=== PATIENT | female | born 1940 | race Caucasian/White ===

== ENCOUNTER → 2019-08-31 05:00 | Outpatient (REF) | payer MEDICARE, SELFPAY ==
[2019-08-31 09:15] LABS: Absolute Lymphocyte Count 1.59 X10^3/uL (0.83-4.51); Absolute Neutrophil Count 4.1 X10^3/uL (2.0-7.7); Basophil# 0.05 X10^3/uL; Basophil% 0.7 % (0-1); Eosinophil# 0.27 X10^3/uL; Hematocrit 34.9 % (37-47); Hemoglobin 11.2 g/dL (12.0-15.0); Lymphocyte # 1.59 X10^3/ul (4.0); Lymphocyte % 23.3 % (19-41); Mean Corp Hgb Conc 32.1 g/dL (32-36); Mean Corpuscular Hgb 30.1 pg (27.0-32.0); Mean Corpuscular Volume 93.8 fL (81-99); Mean Platelet Vol. 10.9 fl (6.2-12.0); Monocyte# 0.74 X10^3/uL; Monocyte% 10.9 % (0-10); NRBC Flagged by Analyzer 0 % (0-5); Neutrophil # 4.14 X10^3/uL (2.7-7.7); Neutrophil % 60.8 % (47-70); Platelet Count 235 K/mm3 (150-450); RBC Distribution Width CV 13.2 % (11.6-14.6); RBC Distribution Width SD 45.1 fl (35.1-43.9); Red Blood Count 3.72 M/mm3 (4.2-5.4); White Blood Count 6.8 K/mm3 (4.4-11.0)
[2019-08-31 09:39] LABS: T4 Free Direct 1.08 ng/dL (0.76-1.46); Thyroid Stim Hormone (TSH) 0.44 uIU/mL (0.358-3.74)
== END ==
LOC: OLS.ACH 05:00
DX: F20.9 Schizophrenia, unspecified (principal); E03.9 Hypothyroidism, unspecified
CPT/HCPCS: 36415; 84439; 84443; 85025

== ENCOUNTER → 2019-10-05 05:30 | Outpatient (REF) | payer MEDICARE, SELFPAY ==
[2019-10-05 08:02] LABS: Absolute Neutrophil Count 4.2 X10^3/uL (2.0-7.7); Basophil# 0.05 X10^3/uL; Basophil% 0.7 % (0-1); Eosinophil# 0.25 X10^3/uL; Eosinophils% 3.7 % (0-5); Hematocrit 34.1 % (37-47); Lymphocyte % 23.5 % (19-41); Mean Corp Hgb Conc 32.3 g/dL (32-36); Mean Corpuscular Hgb 31.1 pg (27.0-32.0); Mean Corpuscular Volume 96.3 fL (81-99); Mean Platelet Vol. 10.2 fl (6.2-12.0); Monocyte# 0.71 X10^3/uL; Monocyte% 10.4 % (0-10); NRBC Flagged by Analyzer 0 % (0-5); Neutrophil # 4.17 X10^3/uL (2.7-7.7); Neutrophil % 61.4 % (47-70); Platelet Count 238 K/mm3 (150-450); RBC Distribution Width CV 13.2 % (11.6-14.6); RBC Distribution Width SD 47.2 fl (35.1-43.9); Red Blood Count 3.54 M/mm3 (4.2-5.4); White Blood Count 6.8 K/mm3 (4.4-11.0)
== END ==
LOC: OLS.ACH 05:30
DX: F20.9 Schizophrenia, unspecified (principal)
CPT/HCPCS: 36415; 85025

== ENCOUNTER → 2019-11-02 05:00 | Outpatient (REF) | payer MEDICARE, SELFPAY ==
[2019-11-02 07:06] LABS: Absolute Lymphocyte Count 1.64 X10^3/uL (0.83-4.51); Absolute Neutrophil Count 3.8 X10^3/uL (2.0-7.7); Basophil# 0.04 X10^3/uL; Basophil% 0.6 % (0-1); Eosinophil# 0.25 X10^3/uL; Eosinophils% 3.9 % (0-5); Hematocrit 32.4 % (37-47); Hemoglobin 10.4 g/dL (12.0-15.0); Lymphocyte # 1.64 X10^3/ul (4.0); Lymphocyte % 25.9 % (19-41); Mean Corp Hgb Conc 32.1 g/dL (32-36); Mean Corpuscular Hgb 31.1 pg (27.0-32.0); Mean Platelet Vol. 10.4 fl (6.2-12.0); Monocyte# 0.64 X10^3/uL; Monocyte% 10.1 % (0-10); NRBC Flagged by Analyzer 0 % (0-5); Neutrophil # 3.75 X10^3/uL (2.7-7.7); Neutrophil % 59.2 % (47-70); Platelet Count 239 K/mm3 (150-450); RBC Distribution Width CV 13.3 % (11.6-14.6); RBC Distribution Width SD 46.9 fl (35.1-43.9); Red Blood Count 3.34 M/mm3 (4.2-5.4); White Blood Count 6.3 K/mm3 (4.4-11.0)
[2019-11-02 07:37] LABS: ALB/GLOB Ratio 1.1 RATIO (0.9-2.4); AST(SGOT) 20 U/L (15-37); Alanine Aminotransfer ALT/SGPT 24 U/L (13-56); Albumin, Serum 2.9 g/dL (3.2-5.0); Alkaline Phosphatase 74 U/L (45-117); Anion Gap 6 (5-15); BUN 29 mg/dL (7-18); BUN/Creat Ratio 28.2 RATIO (10-20); Calcium,Total 9.3 mg/dL (8.5-10.1); Chloride 107 mmol/L (98-107); Cholesterol 163 mg/dL (200); Creatinine, Serum 1.03 mg/dL (0.55-1.02); EST Glomerular Filtration Rate 55 mL/min (>60); Est Glom Filt Rate - Afr Amer 66 mL/min (>60); Globulin 2.7 g/dL (2.2-4.2); Glucose 83 mg/dL (74-106); High Density Lipoprotein 58 mg/dL; Potassium 3.6 mmol/L (3.5-5.1); Protein, Total 5.6 g/dL (6.4-8.2); Sodium Level 145 mmol/L (136-145); T4 Free Direct 1.08 ng/dL (0.76-1.46); Thyroid Stim Hormone (TSH) 0.39 uIU/mL (0.358-3.74); Triglycerides 70 mg/dL; Very Low Density Lipoprotein 14 mg/dL (5-40)
[2019-11-02 08:21] LABS: Hemoglobin A1c 5.8 % (3.8-5.6)
[2019-11-02 10:36] LABS: Vitamin D,25 Hydroxy 57.2 ng/mL
== END ==
LOC: OLS.ACH 05:00
DX: E11.40 Type 2 diabetes mellitus with diabetic neuropathy, unspecified (principal); F20.9 Schizophrenia, unspecified
CPT/HCPCS: 36415; 80053; 80061; 82306; 83036; 84439; 84443; 85025

== ENCOUNTER → 2019-11-30 05:00 | Outpatient (REF) | payer MEDICARE, SELFPAY ==
[2019-11-30 08:00] LABS: Absolute Lymphocyte Count 1.64 X10^3/uL (0.83-4.51); Basophil# 0.04 X10^3/uL; Basophil% 0.6 % (0-1); Eosinophil# 0.22 X10^3/uL; Eosinophils% 3.4 % (0-5); Hematocrit 34.5 % (37-47); Hemoglobin 10.9 g/dL (12.0-15.0); Lymphocyte # 1.64 X10^3/ul (4.0); Mean Corp Hgb Conc 31.6 g/dL (32-36); Mean Corpuscular Hgb 30.6 pg (27.0-32.0); Mean Corpuscular Volume 96.9 fL (81-99); Mean Platelet Vol. 10.6 fl (6.2-12.0); Monocyte# 0.67 X10^3/uL; Monocyte% 10.2 % (0-10); NRBC Flagged by Analyzer 0 % (0-5); Neutrophil # 3.96 X10^3/uL (2.7-7.7); Neutrophil % 60.5 % (47-70); Platelet Count 244 K/mm3 (150-450); RBC Distribution Width CV 12.7 % (11.6-14.6); RBC Distribution Width SD 45.8 fl (35.1-43.9); Red Blood Count 3.56 M/mm3 (4.2-5.4); White Blood Count 6.6 K/mm3 (4.4-11.0)
== END ==
LOC: OLS.ACH 05:00
DX: F20.9 Schizophrenia, unspecified (principal)
CPT/HCPCS: 36415; 85025